=== PATIENT | male | born 1995 | race African-American/Black ===

== ENCOUNTER 2016-09-16 06:51 | Inpatient (IN) | payer SELFPAY ==
[2016-09-16] VITALS (10 sets, daily range): BP systolic 113–119; BP diastolic 58–64; PULSE 62–88; RESP 14–18; TEMP 97.5–98; O2SAT 96–98
[~2016-09-16] VITALS: Ht 172.7 cm; Wt 66.6 kg
[~2016-09-16 06:51] MED LIST: CLIN150 PO; CONTOUR NEXT EZ BLEZ XX; GLUCOMETER XX; GLUCOMTESTSTRIPS XX; LEVEMIR SC; LEVO88TA2 PO; NRSS SQ; SULF-154 PO; Z.0.INSULINSYR XX; Z.0.LANCETS XX
[2016-09-16] MEDS ORDERED: SODIUM CHLOR 0.9% 1000 ML INJ 1,000 ML IV ONE ×2 (07:20→07:50)
--- NOTE | 2016-09-16 07:26 | PD ---
HPI Chief Complaint: GI Complaint Time Seen by Provider: 07:08 Travel History International Travel<30 days: No Contact w/Intl Traveler<30days: No Traveled to known affect area: No History of Present Illness HPI This is a 21-year-old male who has a history of type 1 diabetes who presents to the emergency department with epigastric discomfort, mild associated with nausea , constant since last evening. He says his blood sugar was 380 this morning. He was concerned he may progress into DKA. He denies any dysuria, urinary urgency or frequency and denies any diarrhea. He denies any fevers or chills. PFSH Past Medical History Arthritis: No Asthma: No Autoimmune Disease: No Anxiety: No Depression: No Heart Rhythm Problems: No Cancer: No Cardiovascular Problems: No High Cholesterol: No Chemotherapy: No Chest Pain: No Congestive Heart Failure: No COPD: No Cerebrovascular Accident: No Diabetes: Yes Diminished Hearing: No Endocrine: Yes Gastrointestinal Disorders: No GERD: No Genitourinary: No Hiatal Hernia: No Immune Disorder: No Implanted Vascular Access Dvce: No Kidney Stones: No Musculoskeletal: No Neurologic: No Psychiatric: No Reproductive: No Respiratory: No Migraines: No Radiation Therapy: No Renal Failure: No Seizures: No Sickle Cell Disease: No Sleep Apnea: No Thyroid Disease: Yes (hypothyroid) Ulcer: No Past Surgical History Abdominal Surgery: No AICD: No Arteriovenous Shunt: No Cardiac Surgery: No Ear Surgery: No Endocrine Surgery: No Eye Surgery: No Genitourinary Surgery: No Gynecologic Surgery: No Insulin Pump: No Joint Replacement: No Oral Surgery: No Pacemaker: No Thoracic Surgery: No Social History Alcohol Use: No Tobacco Use: Yes (3 CIGARETTES) Substance Use: No Allergies-Medications (Allergen,Severity, Reaction): Coded Allergies: No Known Allergies (Unverified , 09/16/16) Reported Meds & Prescriptions Reported Meds & Active Scripts Active Reported Levothyroxine (Levothyroxine Sodium) 88 Mcg Tab 88 Mcg PO DAILY Novolin R Inj (Insulin Human Regular) 1,000 Unit/10 Ml Vial 0 SQ DIRECTED Sliding Scale As Directed. Review of Systems Except as stated in HPI: all other systems reviewed are Neg Physical Exam Narrative GENERAL:Well appearing, no acute distress SKIN: Focused skin assessment warm and dry. HEAD: Atraumatic. Normocephalic. EYES: Pupils equal and round. No injection or drainage. ENT: Moist mucous membranes NECK: Trachea midline. CARDIOVASCULAR: Regular rate and rhythm. No murmur appreciated. RESPIRATORY: Clear to auscultation. Breath sounds equal bilaterally. GASTROINTESTINAL: Abdomen soft, mildly tender to palpation in the epigastrium with no rebound/guarding MUSCULOSKELETAL: No obvious deformities. NEUROLOGICAL: Awake and alert. No obvious cranial nerve deficits. Moving all extremities. PSYCHIATRIC: Appropriate mood and affect; insight and judgment normal. Data Data Last Documented VS Vital Signs Date Time Temp Pulse Resp B/P Pulse Ox O2 Delivery O2 Flow Rate FiO2 09/16/16 07:41 14 09/16/16 07:41 63 97 Room Air 09/16/16 06:53 97.5 115/64 Orders Complete Blood Count With Diff (09/16/16 07:20) Comprehensive Metabolic Panel (09/16/16 07:20) Beta Hydroxybutyrate (Acetone) (09/16/16 07:20) Urinalysis - C+S If Indicated (09/16/16 07:20) Blood Gas Venous (Vbg) (09/16/16 07:20) Ecg Monitoring (09/16/16 07:20) Iv Access Insert/Monitor (09/16/16 07:20) Oximetry (09/16/16 07:20) NPO (09/16/16 07:20) Sodium Chlor 0.9% 1000 Ml Inj (Ns 1000 M (09/16/16 07:20) Sodium Chlor 0.9% 1000 Ml Inj (Ns 1000 M (09/16/16 07:50) Sodium Chloride 0.9% Flush (Ns Flush) (09/16/16 07:30) Lipase (09/16/16 07:20) Insulin Human Regular Inj (Novolin R Inj (09/16/16 09:00) Admit Order (Ed Use Only) (09/16/16 09:07) Labs Laboratory Tests Test 09/16/16 09/16/16 07:20 07:53 White Blood Count 5.6 TH/MM3 Red Blood Count 5.20 MIL/MM3 Hemoglobin 16.6 GM/DL Hematocrit 49.2 % Mean Corpuscular Volume 94.7 FL Mean Corpuscular Hemoglobin 32.0 PG Mean Corpuscular Hemoglobin 33.8 % Concent Red Cell Distribution Width 14.7 % Platelet Count 254 TH/MM3 Mean Platelet Volume 8.1 FL Neutrophils (%) (Auto) 67.5 % Lymphocytes (%) (Auto) 24.1 % Monocytes (%) (Auto) 6.7 % Eosinophils (%) (Auto) 0.8 % Basophils (%) (Auto) 0.9 % Neutrophils # (Auto) 3.8 TH/MM3 Lymphocytes # (Auto) 1.4 TH/MM3 Monocytes # (Auto) 0.4 TH/MM3 Eosinophils # (Auto) 0.0 TH/MM3 Basophils # (Auto) 0.1 TH/MM3 CBC Comment DIFF FINAL Differential Comment Urine Color COLORLESS Urine Turbidity CLEAR Urine pH 5.0 Urine Specific [place] 1.030 Urine Protein NEG mg/dL Urine Glucose (UA) 1000 mg/dL Urine Ketones 80 mg/dL Urine Occult Blood NEG Urine Nitrite NEG Urine Bilirubin NEG Urine Urobilinogen LESS THAN 2.0 MG/DL Urine Leukocyte Esterase NEG Urine RBC LESS THAN 1 /hpf Urine Mucus FEW /lpf Microscopic Urinalysis Comment CULT NOT INDICATED Sodium Level 133 MEQ/L Potassium Level 4.6 MEQ/L Chloride Level 94 MEQ/L Carbon Dioxide Level 23.5 MEQ/L Anion Gap 16 MEQ/L Blood Urea Nitrogen 17 MG/DL Creatinine 0.99 MG/DL Estimat Glomerular Filtration 116 ML/MIN Rate Random Glucose 558 MG/DL Calcium Level 8.7 MG/DL Total Bilirubin 0.7 MG/DL Aspartate Amino Transf 45 U/L (AST/SGOT) Alanine Aminotransferase 45 U/L (ALT/SGPT) Alkaline Phosphatase 118 U/L Total Protein 7.0 GM/DL Albumin 3.4 GM/DL Lipase 115 U/L B-Hydroxybutyrate 5.24 MMOL/L Blood Gas Puncture Site LINE Blood Gas Patient Temperature 98.6 Venous Blood pH 7.32 Venous Blood Partial Pressure 40 mmHg CO2 Venous Blood Partial Pressure 54 mmHg O2 Venous Blood HCO3 20 mmol/L Venous Blood Oxygen Saturation 82 % Venous Blood Oxygen Content 17.2 Vol % Venous Blood Base Excess -5.2 mmol/L Oxygen Delivery Device ROOM AIR Blood Gas Liter Flow L/M Blood Gas Inspired Oxygen 21 % [facility] Medical Decision Making Medical Screen Exam Complete: Yes Emergency Medical Condition: Yes Interpretation(s) Afebrile, no tachycardia, normotensive No leukocytosis Mild hyponatremia Hyperglycemia Lipase is normal Beta hydroxybutyrate is 5.24 Urinalysis: No infection, ketones present VBG: Mild metabolic acidosis Differential Diagnosis Diabetic ketoacidosis, hyperglycemia, dehydration Narrative Course This is a 21-year-old male who presents to the emergency department with hyperglycemia, epigastric abdominal discomfort and vomiting. He was placed on a monitor and an IV was established. His labs are consistent with very early diabetic ketoacidosis. Patient was given an insulin bolus and 2 L of IV fluid here in the emergency department. Pt. will be admitted to the ICU Diagnosis Primary Impression: DKA (diabetic ketoacidoses) Qualified Code: E10.10 - Diabetic ketoacidosis without coma associated with type 1 diabetes mellitus Admitting Information Admitting Physician Requests: Admit Paty Vail MD Sep 16, 2016 07:26
[2016-09-16] MEDS ORDERED: SODIUM CHLORIDE 0.9% FLUSH 10 ML FLUSH IVF PRN (07:30)
[2016-09-16 07:38] LABS: AUTOMATED NEUTROPHIL # 3.8 TH/MM3 (1.8-7.7); BASOPHIL # 0.1 TH/MM3 (0-0.2); BASOPHIL % 0.9 % (0.0-2.0); EOSINOPHIL % 0.8 % (0.0-4.0); HEMATOCRIT 49.2 % (39.0-51.0); HEMO FLAGS DIFF FINAL; LYMPH % 24.1 % (9.0-44.0); LYMPHOCYTE # 1.4 TH/MM3 (1.0-4.8); MEAN CELL VOLUME 94.7 FL (80.0-100.0); MEAN CORPUSCULAR HGB CONC 33.8 % (32.0-36.0); MONO % 6.7 % (0.0-8.0); NEUT % 67.5 % (16.0-70.0); PLATELET COUNT 254 TH/MM3 (150-450); RED CELL DISTRIBUTION WIDTH 14.7 % (11.6-17.2); WHITE BLOOD COUNT 5.6 TH/MM3 (4.0-11.0)
[2016-09-16 07:40] LABS: BLOOD, URINE NEG (NEG); COMMENT (UR) CULT NOT INDICATED; CULTURE IF INDICATED CULT NOT INDICATED; GLUCOSE,URINE 1000 mg/dL (NEG); KETONE, URINE 80 mg/dL (NEG); MUCUS URINE FEW /lpf (OCC); NITRITE,URINE NEG (NEG); URINE COLOR COLORLESS (YELLW/STRAW)
[2016-09-16] MEDS ORDERED: NOVORP2 SQ (07:47)
[2016-09-16] MEDS ORDERED: LEVO88TA2 PO (07:47)
[2016-09-16 07:56] LABS: BLOOD GAS VENOUS BASE EXCESS -5.2 mmol/L (-2-2); BLOOD GAS VENOUS HCO3 20 mmol/L (22-26); BLOOD GAS VENOUS O2 CONTENT 17.2 Vol % (9.0-17.0); BLOOD GAS VENOUS O2 HGB SAT 82 % (70-76); BLOOD GAS VENOUS PCO2 40 mmHg (44-48); BLOOD GAS VENOUS PO2 54 mmHg (35-40); BLOOD GAS VENOUS pH 7.32 (7.360-7.400); TEMP CORR TO 98.6
[2016-09-16 07:57] LABS: CRITICAL VALUE YES; DRAW SITE LINE; FIO2 21 %; OXYGEN DEVICE ROOM AIR; STAT YES
[2016-09-16 08:22] LABS: ALKALINE PHOSPHATASE 118 U/L (45-117); ALT (GPT) 45 U/L (12-78); ANION GAP 16 MEQ/L (5-15); AST (GOT) 45 U/L (15-37); BETA-HYDROXYBUTYRATE 5.24 MMOL/L (0.00-0.39); BICARBONATE 23.5 MEQ/L (21.0-32.0); BLOOD UREA NITROGEN 17 MG/DL (7-18); CHLORIDE 94 MEQ/L (98-107); GLOMERULAR FILTRATION RATE 116 ML/MIN (>89); SODIUM (NA) 133 MEQ/L (136-145); TOTAL BILIRUBIN ADULT 0.7 MG/DL (0.2-1.0)
[2016-09-16 08:23] LABS: POTASSIUM 4.6 MEQ/L (3.5-5.1)
[2016-09-16] MEDS ORDERED: INSULIN HUMAN REGULAR 1,000 UNITS/10 ML VIAL IV PUSH ONE (09:00)
--- NOTE | 2016-09-16 09:24 | HHI.HP ---
HPI Service Family Medicine Primary Care Physician No Primary Care Physician Admission Diagnosis dka Diagnoses: International Travel<30 Days: No Contact w/Intl Traveler<30days: No Known Affected Area: No History of Present Illness Patient is a 21 year old male with DM1 and hypothyroidism who presents stomach pain and nausea starting around midnight. His blood sugar was 380 at home. Stomach pain is described as "tightness" in the center of the abdomen, above the umbilicus. Nonradiating, off-and-on, lasting until about 8am this morning. Now he has minimal pain. Nausea resolved a while ago. No other symptoms reported. No new lifestyle habits, no increased time in sun. Urinating normally. Bowel movements normal, no diarrhea. No recent illnesses or sick contacts. No differences in diet. Eats normal diet with meats, veggies, fruits, fats, counts carbs. No PCP at this time. Buys insulin OTC. Came down from [place] about a year old. SSI: 1 unit per 5 carbs. Varies. Does not offer how many he took yesterday, "couldn't tell you". Hypothyroidism: takes Synthroid 88mcg daily. PCP in [place]: "I forget" He denies any dysuria, urinary urgency or frequency and denies any diarrhea. He denies any fevers or chills, weight changes. No cough or SOB. (Henny Olsen MD R1) Review of Systems Constitutional: DENIES: Diaphoretic episodes, Fever, Weight gain, Weight loss, Chills, Night Sweats Eyes: DENIES: Blurred vision, Diplopia, Eye pain Ears, nose, mouth, throat: DENIES: Tinnitus, Hearing loss, Running Nose Respiratory: DENIES: Cough, Snoring, Wheezing, Shortness of breath Cardiovascular: DENIES: Chest pain, Palpitations Gastrointestinal: COMPLAINS OF: Abdominal pain, Nausea, DENIES: Black stools, Bloody stools, Constipation, Diarrhea Genitourinary: DENIES: Urinary frequency, Urgency, Dysuria Musculoskeletal: DENIES: Joint pain, Muscle aches, Stiffness Integumentary: DENIES: Rash Hematologic/lymphatic: DENIES: Bruising, Lymphadenopathy Neurologic: DENIES: Abnormal gait, Headache, Paresthesias, Poor Balance Psychiatric: DENIES: Anxiety, Delusions (Henny Olsen MD R1) Past Family Social History Past Surgical History None Reported Medications Reported Meds & Active Scripts Active Reported Levothyroxine (Levothyroxine Sodium) 88 Mcg Tab 88 Mcg PO DAILY Novolin R Inj (Insulin Human Regular) 1,000 Unit/10 Ml Vial 0 SQ DIRECTED Sliding Scale As Directed. (Henny Olsen MD R1) Allergies: Coded Allergies: No Known Allergies (Unverified , 09/16/16) Family History Family history denied Social History Homeless Working Smoking - occasional, unknown Alcohol - never Illicit - denies (Henny Olsen MD R1) Physical Exam Vital Signs Vital Signs Date Time Temp Pulse Resp B/P Pulse Ox O2 Delivery O2 Flow Rate FiO2 09/16/16 07:41 14 09/16/16 07:41 63 14 97 Room Air 09/16/16 06:53 97.5 88 18 115/64 Physical Exam GENERAL: Well-nourished, well appearing male lying in bed in no apparent distress. SKIN: Warm and dry. No rashes. No erythema or lesions to suggest infection. HEAD: Atraumatic. Normocephalic. EYES: Pupils enlarged to approximately 7mm, reactive to light and accomodation. No scleral icterus. No injection or drainage. ENT: No nasal bleeding or discharge. Mucous membranes pink and moist. No tonsillar erythema or exudate. NECK: Trachea midline. No JVD. CARDIOVASCULAR: Regular rate and rhythm. No murmurs, gallops or rubs. RESPIRATORY: No accessory muscle use. Clear to auscultation. Breath sounds equal bilaterally. GASTROINTESTINAL: Abdomen soft, non-tender, nondistended. Hepatic and splenic margins not palpable. Subcutaneous hardening of the lower abdomen at location that he injects insulin without evidence of infection. MUSCULOSKELETAL: Extremities without clubbing, cyanosis, or edema. No obvious deformities. NEUROLOGICAL: Awake and alert. tours hostess II-XII are intact. Motor grossly within normal limits. Five out of 5 muscle strength in the arms and legs. Normal speech. PSYCHIATRIC: Patient was contact and seems to have a depressed mood during exam. He denies any history or current anxiety or depression Laboratory Laboratory Tests Test 09/16/16 09/16/16 07:20 07:53 White Blood Count 5.6 Red Blood Count 5.20 Hemoglobin 16.6 Hematocrit 49.2 Mean Corpuscular Volume 94.7 Mean Corpuscular Hemoglobin 32.0 Mean Corpuscular Hemoglobin 33.8 Concent Red Cell Distribution Width 14.7 Platelet Count 254 Mean Platelet Volume 8.1 Neutrophils (%) (Auto) 67.5 Lymphocytes (%) (Auto) 24.1 Monocytes (%) (Auto) 6.7 Eosinophils (%) (Auto) 0.8 Basophils (%) (Auto) 0.9 Neutrophils # (Auto) 3.8 Lymphocytes # (Auto) 1.4 Monocytes # (Auto) 0.4 Eosinophils # (Auto) 0.0 Basophils # (Auto) 0.1 CBC Comment DIFF FINAL Differential Comment Urine Color COLORLESS Urine Turbidity CLEAR Urine pH 5.0 Urine Specific [place] 1.030 Urine Protein NEG Urine Glucose (UA) 1000 Urine Ketones 80 Urine Occult Blood NEG Urine Nitrite NEG Urine Bilirubin NEG Urine Urobilinogen LESS THAN 2.0 Urine Leukocyte Esterase NEG Urine RBC LESS THAN 1 Urine Mucus FEW Microscopic Urinalysis Comment CULT NOT INDICATED Sodium Level 133 Potassium Level 4.6 Chloride Level 94 Carbon Dioxide Level 23.5 Anion Gap 16 Blood Urea Nitrogen 17 Creatinine 0.99 Estimat Glomerular Filtration 116 Rate Random Glucose 558 Calcium Level 8.7 Total Bilirubin 0.7 Aspartate Amino Transf 45 (AST/SGOT) Alanine Aminotransferase 45 (ALT/SGPT) Alkaline Phosphatase 118 Total Protein 7.0 Albumin 3.4 Lipase 115 B-Hydroxybutyrate 5.24 Blood Gas Puncture Site LINE Blood Gas Patient Temperature 98.6 Venous Blood pH 7.32 Venous Blood Partial Pressure 40 CO2 Venous Blood Partial Pressure 54 O2 Venous Blood HCO3 20 Venous Blood Oxygen Saturation 82 Venous Blood Oxygen Content 17.2 Venous Blood Base Excess -5.2 Oxygen Delivery Device ROOM AIR Blood Gas Liter Flow Blood Gas Inspired Oxygen 21 (Henny Olsen MD R1) Result Diagram: 09/16/16 0720 09/16/16 0720 Assessment and Plan Assessment and Plan 21-year-old male with a history of hypothyroidism and type 1 diabetes who presents with hyperglycemia, nausea and abdominal pain. Nausea and pain have resolved, however, he is meeting criteria for DKA. Code Status Full Code (Henny Olsen MD R1) Attending Attestation Patient seen and examined. Case reviewed and discussed with the resident team. Agree with plan of care as discussed with me and documented in the resident note. pt seen on admission. he is very independent and has left AMA when last admitted (Leona Blood MD) Problem List: (1) DKA (diabetic ketoacidoses) Status: Acute Plan: Unknown etiology, patient does take insulin [id number] and uses an unknown sliding scale, suggesting poor control. AG 16 on admission, random serum glucose 558. Glucose 555 after 2 L NS bolus and insulin bolus. No evidence of infection per history or labs Will obtain UDS as pupils were dilated on exam Will commence with DKA protocol, patient is status post 2 L bolus and 7 units insulin bolus per protocol BMP every 6 hours Follow-up repeat [facility] Will check A1c We'll transition to subQ insulin once gap is closed (2) DM (diabetes mellitus) Status: Acute Plan: Currently meeting criteria for DKA, will add diabetic education and nutrition consult Case management to assist with PCP (3) Hypothyroidism Status: Chronic Plan: Per report, takes Synthroid 88 g daily, to continue. Will check TSH (4) Fluids/Electrolytes/Nutrition/Prophylaxis Status: Acute Plan: Fluids: Per protocol at this time, nothing by mouth Electrolytes: monitor and replete K as needed per protocol Nutrition: Nothing by mouth DVT Prophylaxis: Lovenox 40mg subQ q24hr GI Prophylaxis: Not indicated (Henny Olsen MD R1) Physician Certification 2 Midnight Certification Type: Admission for Inpatient Services Order for Inpatient Services The services are ordered in accordance with Medicare regulations or non- Medicare payer requirements, as applicable. In the case of services not specified as inpatient-only, they are appropriately provided as inpatient services in accordance with the 2-midnight benchmark. Estimated LOS (days): 3 days is the estimated time the patient will need to remain in the hospital, assuming treatment plan goals are met and no additional complications. Post-Hospital Plan: Not yet determined (Henny Olsen MD R1) Problem Qualifiers (1) DKA (diabetic ketoacidoses): Qualified Code: E10.10 - Diabetic ketoacidosis without coma associated with type 1 diabetes mellitus (2) DM (diabetes mellitus): Henny Olsen MD R1 Sep 16, 2016 09:24 Leona Blood MD Sep 17, 2016 12:13
[2016-09-16] MEDS ORDERED: SODIUM CHLOR 0.9% 1000 ML INJ 1,000 ML IV SCH (09:32)
[2016-09-16] MEDS ORDERED: POTASSIUM CHLOR 40 MEQ PREMIX 100 ML IV PRN ×2 (09:45)
[2016-09-16] MEDS ORDERED: INSULIN REGULAR (IV INFUSION) 100 UNITS in SODIUM CHLORIDE 0.9% INJ 99 ML IV SCH (09:45)
[2016-09-16] MEDS ORDERED: POTASSIUM CHLOR 20 MEQ PREMIX 100 ML IV PRN ×6 (09:45)
[2016-09-16] MEDS ORDERED: SODIUM PHOSPHATE INJ 15 MMOL in SODIUM CHLORIDE 0.9% INJ 100 ML IV PRN (09:45)
[2016-09-16] MEDS ORDERED: CHLORHEXIDINE GLUCONATE 2 % 1 PACK (2 CLOTHS) TOP PRN (09:45)
[2016-09-16] MEDS ORDERED: MISCELLANEOUS NURSING INFORMATION XX SCH (09:45)
[2016-09-16] MEDS ORDERED: SODIUM BICARBONATE 8.4% SOLN 50 MEQ/50 ML VIAL IV PRN ×2 (09:45)
[2016-09-16] MEDS ORDERED: LEVOTHYROXINE SODIUM 88 MCG TAB PO SCH (10:20)
[2016-09-16] MEDS: DEXT 5%-NACL 0.9% 1000 ML INJ 1,000 ML IV SCH ×2 (11:03→16:51)
[2016-09-16 11:16] LABS: AMPHETAMINE, URINE NEG (NEG); BARBITURATES, URINE NEG (NEG); COCAINE, URINE NEG (NEG)
[2016-09-16 14:40] LABS: BICARBONATE 14.1 MEQ/L (21.0-32.0); MAGNESIUM 1.7 MG/DL (1.5-2.5); POTASSIUM 5.1 MEQ/L (3.5-5.1)
[2016-09-16 14:54] LABS: CALCIUM-PROTEIN CORRECTED 7.3 MG/DL (8.5-10.1)
[2016-09-16] MEDS ORDERED: CALCIUM CARBONATE 1.25 GM (CA 500 MG) TAB PO ONE (16:00)
[2016-09-16 16:26] LABS: HEMOGLOBIN A1a 1.4 %; HEMOGLOBIN A1b 4.1 %; HEMOGLOBIN Ao 70.7 %; HEMOGLOBIN LA1C 5.1 %; HEMOGLOBIN P3 5.3 %
[2016-09-16] MEDS ORDERED: ENOXAPARIN SODIUM 40 MG/0.4 ML SYRINGE SQ SCH (18:00)
[2016-09-16 20:03] LABS: BETA-HYDROXYBUTYRATE 0.5 MMOL/L (0.00-0.39); POTASSIUM 3.7 MEQ/L (3.5-5.1)
[2016-09-16] MEDS ORDERED: CALCIUM CARBONATE 1.25 GM (CA 500 MG) TAB PO SCH (21:00)
--- NOTE | 2016-09-16 21:13 | PD.AMA ---
Against Medical Advice Note Discharge Disposition: Against Medical Advice Pt Condition on Discharge: Stable Recommended Treatment Course Monitor BMP, continue IVF and insulin drip, transition to subQ insulin and discontinue drip, diabetic education, scripts for insulin prior to discharge AMA Statement Patient Alan Arredondo has decided to leave the hospital against medical advice. This patient has the capacity to refuse care and understands the risks of leaving, including permanent disability and/or , and has had an opportunity to ask questions about his condition. The patient has been informed that he may return for care at any time, and follow up has been arranged/ advised. Henny Olsen MD R1 Sep 16, 2016 21:13
[2016-09-17] MEDS ORDERED: CHLORHEXIDINE GLUCONATE 2 % 1 PACK (2 CLOTHS) TOP SCH (04:00)
== END 2016-09-16 20:30 | disposition left against medical advice (07) | DRG 639 ==
LOC: NEPC 06:51 → NEDA 09:09 → HIMW 12:50
PROVIDERS: ADMIT Family Medicine; ATTEND Family Medicine
DX: E10.10 Type 1 diabetes mellitus with ketoacidosis without coma (principal); E03.9 Hypothyroidism, unspecified; Z79.4 Long term (current) use of insulin; F17.210 Nicotine dependence, cigarettes, uncomplicated; Z59.0 Homelessness
CPT/HCPCS: 80048; 80053; 80307; 81001; 82010; 82805; 82948; 83036; 83690; 83735; 84100; 84155; 84443; 85025; 87641; 96361; 96374; J1815; J1817; J7030; J7042

== ENCOUNTER 2018-02-05 22:06 | Observation (INO) ==
[2018-02-05] MEDS: Sod Chloride 0.9% Inj 1,000 ML IV.SIG SCH (23:15)
[2018-02-05 23:30] LABS: VBG Base Excess -1.3 mmol/L (-2-2); VBG Blood Gas Oxygen Content 16.9 Vol % (9.0-17.0); VBG PCO2 35 mmHG (44-48); VBG PH 7.42 (7.360-7.400); VBG PO2 41 mmHG (35-40)
[2018-02-06 00:04] LABS: Baso # (Auto) 0.1 th/mm3 (0.0-0.2); Baso % (Auto) 0.4 % (0.0-2.0); Eos % (Auto) 0.1 % (0.0-4.0); Hematocrit 53.7 % (39.0-51.0); Hemoglobin 19.3 gm/dL (13.0-17.0); Lymph # (Auto) 2.3 th/mm3 (1.0-4.8); Lymph % (Auto) 13.2 % (9.0-44.0); Mean Corpuscular HGB Conc 35.9 % (32.0-36.0); Mean Corpuscular Hemoglobin 32.3 pg (27.0-34.0); Mean Platelet Volume 7.6 fL (7.0-11.0); Mono % (Auto) 5.5 % (0.0-8.0); Neut % (Auto) 80.8 % (16.0-70.0); Platelet Count 357 th/mm3 (150-450); Red Blood Count 5.96 mil/mm3 (4.50-5.90); Red Cell Distribution Width 13.5 % (11.6-17.2); White Blood Count 17.3 th/mm3 (4.0-11.0)
[2018-02-06 00:23] LABS: Albumin 4.1 g/dL (3.4-5.0); Beta Hydroxybutyric Acid 0.78 mmol/L (0.00-0.39); Calcium 10.4 mg/dL (8.5-10.1); Carbon Dioxide 27.5 meq/L (21.0-32.0); Potassium 4.1 meq/L (3.5-5.1); Total Protein 8.9 g/dL (6.4-8.2)
[2018-02-06] MEDS ORDERED: Ketorolac Inj 30 MG/ML (IVP) Vial IV.PUSH ONE (00:37)
[2018-02-06] MEDS: Sod Chloride 0.9% Inj 1,000 ML IV.SIG SCH (00:49)
[2018-02-06] MEDS ORDERED: Sodium Chlor 0.9% Inj 500 ML IV.SIG SCH (01:00)
--- NOTE | 2018-02-06 01:00 | XR ---
EXAM DATE: 02/06/2018 12:53 AM EDT AGE/SEX: 22 years / Male INDICATIONS: Hyperglycemia. CLINICAL DATA: This is the patient's initial encounter. Patient reports that signs and symptoms have been present for 1 day and indicates a pain score of 0/10. MEDICAL/SURGICAL HISTORY: Hypothyroidism. Diabetes. None. COMPARISON: [facility] – [place], CHEST SINGLE AP, 03/10/2017. . FINDINGS: A single AP view of the chest demonstrates the lungs to be symmetrically aerated without evidence of mass, infiltrate or effusion. The cardiomediastinal contours are unremarkable. Osseous structures a re intact. CONCLUSION: 1. No acute cardiopulmonary disease. Electronically signed by: Jaylan Mistry MD 02/06/2018 12:58 AM EDT
--- NOTE | 2018-02-06 01:44 | CT ---
EXAM DATE: 02/06/2018 1:27 AM EDT AGE/SEX: 22 years / Male INDICATIONS: Abdomen pain. CLINICAL DATA: This is the patient's initial encounter. Patient reports that signs and symptoms have been present for 1 day and indicates a pain score of 2/10. MEDICAL/SURGICAL HISTORY: Diabetes mellitus type II. Hyperthyroidism. None. ORAL CONTRAST: Patient refused oral contrast. RADIATION DOSE: 9.07 CTDI (mGy) COMPARISON: [facility] – [place], US ABDOMEN - LIVER, 10/28/2015. . TECHNIQUE: Multiple contiguous axial images were obtained through the abdomen and pelvis following b olus infusion of 95 ml Omnipaque 350 (iohexol) nonionic water-soluble contrast as a single exam dos e. Patient refused oral contrast. Using automated exposure control and adjustment of the mA and/or k V according to patient size, radiation dose was kept as low as reasonably achievable to obtain optima l diagnostic quality images. DICOM format image data is available electronically for review and comp arison. FINDINGS: LOWER LUNGS: Minimal groundglass opacities in the posterior lung bases bilaterally. LIVER: Mild hepatomegaly. No focal mass or intrahepatic ductal dilatation. No calcified gallstones. SPLEEN: Homogeneous density without enlargement. PANCREAS: Unremarkable without mass or calcification. KIDNEYS: Kidneys demonstrate symmetrical enhancement and are symmetrical in size without evidence fo r radiopaque renal calculi or hydronephrosis. ADRENAL GLANDS: Unremarkable. AORTA: Britney-aneurysmal. BOWEL/MESENTERY: Evaluation of the midabdomen is markedly limited due to motion artifact. Appendix i s not directly visualized. There is a focal intussusception in a loop of small bowel in the left mida bdomen, likely proximal ileoileal. The visualized portions of bowel appear unremarkable. No free flui d or drainable fluid collections. ABDOMINAL WALL: Intact. RETROPERITONEUM: No evidence of adenopathy in the retrocrural, para-aortic, or deep pelvic regions. BLADDER: Contours are smooth. REPRODUCTIVE: No abnormal masses or calcifications seen. BONY STRUCTURES: Unremarkable. CONCLUSION: 1. Probable transient ileoileal intussusception in the left midabdomen. Transient intussusceptions a re frequently detected on CT exam and generally benign. It is however reported in adults with celiac and Crohn's disease although there is no evidence for significant inflammatory bowel disease on this exam. 2. Portions of the midabdomen are obscured by motion artifact. 3. Appendix is not directly visualized although there is no significant inflammatory change in the r ight lower quadrant. Electronically signed by: Jaylan Mistry MD 02/06/2018 1:42 AM EDT
--- NOTE | 2018-02-06 02:57 | ED ---
HPI General Chief complaint: Abdominal Pain Stated complaint: Medical check Up Time Seen by Provider: 02/05/18 22:59 Source: patient Mode of arrival: ambulatory Limitations: no limitations History of Present Illness HPI narrative: Patient is a 22 year old male, with history of type I diabetes, who comes in complaining of feeling unwell with nausea, vomiting, and abdominal pain. He says he ran out of his insulin and his sugar got to 400s. He was able to refill his insulin today and has been treating his sugars. He says he still does not feel right, feels generally weak, and he has pain to the left side of his abdomen. He denies fever or chills. He denies cough or cold symptoms. Severity is moderate. Related Data Home Medications Medication Instructions Recorded Confirmed insulin regular human 1 sliding scale dose SUB-Q UD 02/05/18 02/05/18 Allergies Allergy/AdvReac Type Severity Reaction Status Date / Time No Known Allergies Allergy Verified 02/05/18 22:43 Review of Systems ROS: all other systems reviewed are negative Constitutional Denies chills and Denies fever(s) ENT Denies dizziness and Denies sore throat Cardiovascular Denies chest pain Respiratory Denies cough and Denies dyspnea Gastrointestinal Reports abdominal pain, Reports nausea and Reports vomiting Genitourinary Denies dysuria Musculoskeletal Denies myalgias and Denies arthralgias Integumentary/Breasts Denies lesions, Denies rash and Denies wounds Neurologic Denies focal weakness and Denies numbness [facility] Medical History Medical History Diabetes (Acute) Hypothyroid (Acute) Social History Social History Substance History: No History of Abuse Smoking Status: Never smoker Tobacco Type: Cigarettes How Often Do You Have a Drink Containing Alcohol: Never Recent Travel in [facility] within the Last 8 Weeks: No Recent Out of Country Travel within the Last 8 Weeks: No Immunization History Tetanus Immunization: <5 Years Hx Influenza Vaccine This Season: Yes Exam Narrative Exam Narrative: GENERAL: Awake and alert, in no acute distress. Ketones on breath. SKIN: Focused skin assessment warm/dry. HEAD: Atraumatic. Normocephalic. EYES: Pupils equal and round. No scleral icterus. ENT: Dry mucous membranes. NECK: Trachea midline. No JVD. CARDIOVASCULAR: Tachycardia. No murmur appreciated. RESPIRATORY: No accessory muscle use. Clear to auscultation. Breath sounds equal bilaterally. GASTROINTESTINAL: Abdomen soft, nondistended. Tender to palpation of the left side of the abdomen. No rebound or guarding. MUSCULOSKELETAL: No obvious deformities. No clubbing. No cyanosis. No edema. NEUROLOGICAL: Awake and alert. No obvious cranial nerve deficits. Motor grossly within normal limits. Normal speech. PSYCHIATRIC: Appropriate mood and affect; insight and judgment normal. Course Initial Documented Vital Signs Temperature 98.6 F 02/05/18 22:43 Pulse Rate 159 H 02/05/18 22:43 Respiratory Rate 18 02/05/18 22:43 Blood Pressure 120/77 02/05/18 22:43 Pulse Oximetry 95 02/05/18 22:43 Last Documented Vital Signs Temperature 98.6 F 02/05/18 22:43 Pulse Rate 112 H 02/06/18 00:12 Respiratory Rate 15 02/06/18 02:54 Blood Pressure 118/75 02/06/18 00:12 Pulse Oximetry 96 02/06/18 00:12 Medical Decision Making [facility] Narrative Medical decision making narrative: Patient is a 22-year-old male with history of type 1 diabetes who comes in complaining of nausea and vomiting and abdominal pain and a feeling of being unwell. Patient is tachycardic on arrival , abdomen is tender to the left side. IV established, labs sent. Labs show elevated white blood cell count. PH is 7.4. Anion gap is within normal limits. BUN and creatinine are elevated, suggesting dehydration. Patient given IV fluids with improvement of his tachycardia. Given Zofran and Tylenol. CT of the abdomen and pelvis performed shows possible transient intussusception. Patient continues to still have some pain to his abdomen. Believe he would benefit from an observation stay, possible surgical consult in the morning. Medical Screen Exam Complete: Yes Emergency Medical Condition: Yes Differential Diagnosis Differential Diagnosis: DKA versus hyperglycemia versus dehydration Medical Records Medical records reviewed: Yes I reviewed the patient's medical records. Lab Data Lab results reviewed: Yes I reviewed the patient's lab results. Result diagrams: 02/05/18 23:20 02/05/18 23:20 Lab Results 09/15/18 09/15/18 09/15/18 Range/Units 23:10 23:20 23:20 WBC 17.3 H (4.0-11.0) th/mm3 RBC 5.96 H (4.50-5.90) mil/mm3 Hgb 19.3 H (13.0-17.0) gm/dL Hct 53.7 H (39.0-51.0) % MCV 90.0 (80.0-100.0) fL MCH 32.3 (27.0-34.0) pg MCHC 35.9 (32.0-36.0) % RDW 13.5 (11.6-17.2) % Plt Count 357 (150-450) th/mm3 MPV 7.6 (7.0-11.0) fL Neut % (Auto) 80.8 H (16.0-70.0) % Lymph % (Auto) 13.2 (9.0-44.0) % [place] % (Auto) 5.5 (0.0-8.0) % Eos % (Auto) 0.1 (0.0-4.0) % Baso % (Auto) 0.4 (0.0-2.0) % Neut # (Auto) 14.0 H (1.8-7.7) th/mm3 Lymph # (Auto) 2.3 (1.0-4.8) th/mm3 [place] # (Auto) 1.0 H (0.0-0.9) th/mm3 Eos # (Auto) 0.0 (0.0-0.4) th/mm3 Baso # (Auto) 0.1 (0.0-0.2) th/mm3 WBC Differential . Differential Comment Auto diff final Puncture Site Rn bennie from iv site Patient Temperature 98.6 VBG pH 7.42 H (7.360-7.400) VBG pCO2 35 L (44-48) mmHG VBG pO2 41 H (35-40) mmHG VBG HCO3 23 (22-26) mmol/L VBG O2 Saturation 75 (70-76) % VBG O2 Content 16.9 (9.0-17.0) Vol % VBG Base Excess -1.3 (-2-2) mmol/L VBG Carboxyhemoglobin 1.4 (0-4) % VBG Methemoglobin 0.6 (0-2) % Hemoglobin 16.1 H (12.0-16.0) G/DL O2 Delivery Device Room air Inspired O2 21 % Critical Value No Sodium 137 (136-145) meq/L Potassium 4.1 (3.5-5.1) meq/L Chloride 98 (98-107) meq/L Carbon Dioxide 27.5 (21.0-32.0) meq/L Anion Gap 12 (5-15) meq/L BUN 26 H (7-18) mg/dL Creatinine 1.42 H (0.60-1.30) mg/dL Estimated GFR 76 L (>89) mL/min Random Glucose 105 (74-106) mg/dL Calcium 10.4 H (8.5-10.1) mg/dL Total Bilirubin 0.6 (0.2-1.0) mg/dL Direct Bilirubin 0.1 (0.0-0.2) mg/dL Indirect Bilirubin 0.5 (0.0-0.8) mg/dL AST 35 (15-37) U/L ALT 36 (12-78) U/L Alkaline Phosphatase 142 H (45-117) U/L Total Protein 8.9 H (6.4-8.2) g/dL Albumin 4.1 (3.4-5.0) g/dL Beta-Hydroxybutyric Acd 0.78 H (0.00-0.39) mmol/L Imaging Data Radiologist's impression: Abdomen/Pelvis CT 02/06/18 00:00 CONCLUSION: 1. Probable transient ileoileal intussusception in the left midabdomen. Transient intussusceptions are frequently detected on CT exam and generally benign. It is however reported in adults with celiac and Crohn's disease although there is no evidence for significant inflammatory bowel disease on this exam. 2. Portions of the midabdomen are obscured by motion artifact. 3. Appendix is not directly visualized although there is no significant inflammatory change in the right lower quadrant. Chest X-Ray 02/06/18 00:37 CONCLUSION: 1. No acute cardiopulmonary disease. Discharge Plan Discharge Disposition Patient Disposition: 30 Still Patient Discharge Condition Condition: Stable Discharge Details Diagnosis: Nausea & vomiting, Intussusception Physicians Team ED Provider: Cristin Meng Primary Care Provider: Primary Care Physici,Lizzy Rxs /Orders / Referrals /Forms Prescriptions: No Action insulin regular human 100 unit/mL Solution 1 sliding scale dose SUB-Q UD RF: 0 Discharge Interventions Interventions: Vital Signs Last Done: 02/06/18 00:12 Status ED Status: With Doctor
[2018-02-06] MEDS ORDERED: Dextrose 50% in Water 50 ML Vial IV.PUSH PRN (03:27)
[2018-02-06] MEDS ORDERED: Acetaminophen 325 MG Tablet PO PRN (03:28)
[2018-02-06] MEDS ORDERED: Morphine Inj 4 MG/ML Vial IV.PUSH PRN (03:28)
[2018-02-06] MEDS ORDERED: Bisacodyl 10 MG Supp RECTAL PRN (03:28)
[2018-02-06] MEDS: Sod Chloride 0.9% Inj 1,000 ML IV.CONT SCH ×3 (04:19→17:09)
--- NOTE | 2018-02-06 04:25 | P.HPIM ---
History of Present Illness Primary Care Physician: No Primary Care Physician History of Present Illness: This is a 22-year-old male with a PMH of DM who presents to ER with complaints of abdominal pain, nausea and vomiting starting earlier today. States he had run out of his Insulin a few days ago and BS were running high in the 400's, however he was able to refill his prescription and has been using sliding scale , notes BS now well controlled. Today, w/ acute onset abdominal pain, nausea and vomiting. No fever, chills or diarrhea. On arrival, BP 120/77, HR 159, O2 sat 95% on RA, Afebrile. WBC 17.3, hemoglobin 19.3. Creatinine 1.42, previously 0.89 on 03/12/2017. CXR with no acute findings. CT Abdomen/Pelvis probable transient ileoileal intussusception in the left mid abdomen, no significant inflammatory bowel disease. Currently pain free. - Diagnosis (1) DM (diabetes mellitus) (2) ZAIN (acute kidney injury) (3) Leukocytosis (4) Intussusception Review of Systems PAST FAMILY HISTORY: Reviewed. No h/o DM or CAD All other systems reviewed negative except as stated in HPI PMFSH - History History Provided By: Patient - Medical History Medical History: Medical History (Last Reviewed 02/06/18 @ 03:05 by Cristin Meng MD) Diabetes Hypothyroid - Tobacco History Smoking Status: Never smoker Tobacco Type: Cigarettes - Alcohol History How Often Do You Have a Drink Containing Alcohol: Never - Substance Use History Substance History: No History of Abuse - Travel History Recent Travel in the [place] Within the Last 8 Weeks: No Recent Travel Out of the Country Within the Last 8 Weeks: No - Immunization History Tetanus Immunization: <5 Years Hx Influenza Vaccine This Season: Yes Medications and Allergies Active Medications: Active Medications Acetaminophen (Tylenol) 650 mg PO Q4H PRN PRN Reason: Temp > 100.4 Al Hydroxide/Mg Hydroxide (Milk Of Magnesia Liq) 30 ml PO Q12H PRN PRN Reason: Mild Constipation Bisacodyl (Dulcolax Supp) 10 mg RECTAL DAILY PRN PRN Reason: SEVERE CONSITIPATION Dextrose (D50w Vial) 50 ml IV.PUSH UNSCH PRN PRN Reason: PER HYPOGLYCEMIA PROTOCOL Glucagon (Glucagon Inj) 1 mg OTHER PRN PRN PRN Reason: for Hypoglycemia Protocol Sodium Chloride (Ns Inj) 1,000 mls @ 0 mls/hr IV.SIG BOLUS MARCO ANTONIO Stop: 02/06/18 23:16 Last Infusion: 02/06/18 01:49 Dose: Infused Sodium Chloride (Ns Inj) 500 mls @ 0 mls/hr IV.SIG BOLUS MARCO ANTONIO Last Infusion: 02/06/18 01:50 Dose: Infused Sodium Chloride (Ns Inj) 1,000 mls @ 100 mls/hr IV.CONT .Q10H MARCO ANTONIO Piperacillin/Tazobactam/Dextrose (Zosyn 4.5 Gm Premix) 4.5 gm in 100 mls @ 200 mls/hr IV.SIG Q6H MARCO ANTONIO Insulin Aspart (Novolog Insulin Correctional Sugar Inj) 0 unit SQ ACHS MARCO ANTONIO; Protocol Lactulose (Lactulose Liq) 30 ml PO DAILY PRN PRN Reason: SEVERE CONSITIPATION Morphine Sulfate (Morphine Inj) 2 mg IV.PUSH Q4H PRN PRN Reason: PAIN 6-10 Ondansetron HCl (Zofran Inj) 4 mg IV.PUSH Q6H PRN PRN Reason: NAUSEA OR VOMITING Senna/Docusate Sodium (Kiki-Colace) 1 tab PO BID MARCO ANTONIO Sennosides (Senokot) 17.2 mg PO Q12H PRN PRN Reason: Moderate Constipation Allergies Allergy/AdvReac Type Severity Reaction Status Date / Time No Known Allergies Allergy Verified 02/05/18 22:43 Home Medications Medication Instructions Recorded Confirmed Type insulin regular human 1 sliding scale dose SUB-Q UD 02/05/18 02/05/18 History Exam Vital signs: Vital Signs 02/05/18 22:43 02/05/18 23:22 02/06/18 00:12 Temperature 98.6 F Pulse Rate 159 H 129 H 112 H Respiratory Rate 18 20 17 Blood Pressure 120/77 130/84 118/75 Pulse Oximetry 95 98 96 02/06/18 02:54 02/06/18 04:17 Temperature Pulse Rate 99 H Respiratory Rate 15 14 Blood Pressure 127/58 L Pulse Oximetry 95 Intake & Output 02/05/18 02/05/18 02/06/18 06:59 18:59 06:59 Intake Total 3500 / 3500 Balance 3500 / 3500 Weight 72.575 kg Intake: IV 3500 / 3500 NS Inj 1,000 ML @ Wide Open IV. 3000 / 3000 SIG BOLUS MARCO ANTONIO Rx#:[id number] NS Inj 500 ML @ Wide Open IV. 500 / 500 SIG BOLUS MARCO ANTONIO Rx#:[id number] Narrative: PE: GENERAL: Very pleasant young male in no acute distress. SKIN: Focused skin assessment warm and dry. HEENT: PERRLA, EOMI. No scleral icterus or conjunctival pallor. No lid lag or facial droop. CARDIOVASCULAR: Regular rate and rhythm. No obvious murmurs to auscultation. No chest tenderness to palpation. RESPIRATORY: No obvious rhonchi or wheezing. Clear to auscultation. Breath sounds equal bilaterally. GASTROINTESTINAL: Abdomen soft, very mild tenderness to palpation, nondistended. BS normal. MUSCULOSKELETAL: Extremities without clubbing, cyanosis, or edema. No obvious deformities. NEUROLOGICAL: Awake, alert and oriented x4. No focal neurologic deficits. Moving both upper and lower extremities spontaneously. PSYCHIATRIC: Appropriate mood and affect. Insight and judgment normal. Results - Labs CBC & Chem 7: 02/05/18 23:20 02/05/18 23:20 Labs: Short CBC 02/05/18 Range/Units 23:20 WBC 17.3 H (4.0-11.0) th/mm3 Hgb 19.3 H (13.0-17.0) gm/dL Hct 53.7 H (39.0-51.0) % Plt Count 357 (150-450) th/mm3 BMP 02/05/18 23:20 Sodium 137 Potassium 4.1 Chloride 98 Carbon Dioxide 27.5 BUN 26 H Creatinine 1.42 H Calcium 10.4 H Liver Function 02/05/18 Range/Units 23:20 Total Bilirubin 0.6 (0.2-1.0) mg/dL Direct Bilirubin 0.1 (0.0-0.2) mg/dL AST 35 (15-37) U/L ALT 36 (12-78) U/L Alkaline Phosphatase 142 H (45-117) U/L Albumin 4.1 (3.4-5.0) g/dL - Imaging Impressions Abdomen/Pelvis CT 02/06/18 00:00 CONCLUSION: 1. Probable transient ileoileal intussusception in the left midabdomen. Transient intussusceptions are frequently detected on CT exam and generally benign. It is however reported in adults with celiac and Crohn's disease although there is no evidence for significant inflammatory bowel disease on this exam. 2. Portions of the midabdomen are obscured by motion artifact. 3. Appendix is not directly visualized although there is no significant inflammatory change in the right lower quadrant. Chest X-Ray 02/06/18 00:37 CONCLUSION: 1. No acute cardiopulmonary disease. Caprini VTE Risk Assessment Caprini VTE Risk Assessment: No/Low Risk (score <= 1) Caprini Risk Assessment Model: Point Value = 1 Point Value = 2 Point Value = 3 Point Value = 5 Age 41-60 Minor surgery BMI > 25 kg/m2 Swollen legs Varicose veins or History of unexplained or recurrent spontaneous Oral contraceptives or hormone replacement Sepsis (< 1 month) Serious lung disease, including pneumonia (< 1 month) Abnormal pulmonary function Acute myocardial infarction Congestive heart failure (< 1 month) History of inflammatory bowel disease Medical patient at bed rest Age 61-74 Arthroscopic surgery Major open surgery (> 45 min) Laparoscopic surgery (> 45 min) Malignancy Confined to bed (> 72 hours) Immobilizing plaster cast Central venous access Age >= 75 History of VTE Family history of VTE Factor V Leiden Prothrombin [id number] Lupus anticoagulant Anticardiolipin antibodies Elevated serum homocysteine Heparin-induced thrombocytopenia Other congenital or acquired thrombophilia Stroke (< 1 month) Elective arthroplasty Hip, pelvis, or leg fracture Acute spinal cord injury (< 1 month) Prophylaxis Regimen: Total Risk Factor Score Risk Level Prophylaxis Regimen 0-1 Low Early ambulation 2 Moderate Order ONE of the following: *Sequential Compression Device (SCD) *Heparin 5000 units SQ BID 3-4 Higher Order ONE of the following medications: *Heparin 5000 units SQ TID *Enoxaparin/Lovenox 40 mg SQ daily (WT < 150 kg, CrCl > 30 mL/min) *Enoxaparin/Lovenox 30 mg SQ daily (WT < 150 kg, CrCl > 10-29 mL/min) *Enoxaparin/Lovenox 30 mg SQ BID (WT < 150 kg, CrCl > 30 mL/min) AND/OR *Sequential Compression Device (SCD) 5 or more Highest Order ONE of the following medications: *Heparin 5000 units SQ TID (Preferred with Epidurals) *Enoxaparin/Lovenox 40 mg SQ daily (WT < 150 kg, CrCl > 30 mL/min) *Enoxaparin/Lovenox 30 mg SQ daily (WT < 150 kg, CrCl > 10-29 mL/min) *Enoxaparin/Lovenox 30 mg SQ BID (WT < 150 kg, CrCl > 30 mL/min) AND *Sequential Compression Device (SCD) Assessment and Plan - Assessment (1) DM (diabetes mellitus) Code(s): E11.9 - Type 2 diabetes mellitus without complications Status: Acute (2) ZAIN (acute kidney injury) Code(s): N17.9 - Acute kidney failure, unspecified Status: Acute (3) Leukocytosis Code(s): D72.829 - Elevated white blood cell count, unspecified Status: Acute (4) Intussusception Code(s): K56.1 - Intussusception Status: Acute - Plan A/P: 1. Intussusception: c/o abdominal pain, nausea/vomiting, now resolved, CT Abd/ Pelvis w/ ileoileal transient intussusception, images reviewed, no significant inflammation, clinically improved w/ no pain at this time, abdomen soft. NPO, Consult Gen Sx for further eval, analgesics/antiemetic as needed. 2. DM: Sliding scale w/ Accu-Cheks 3. ZAIN: Creatinine 1.42, previously 0.89 on 03/12/17, check U/a, IVF for hydration, monitor I/O. 4. Leukocytosis: WBC 17.3, afebrile, however in light of intussusception will start on empiric treatment w/ Zosyn IV for possible intra-abdominal infection, repeat labs in am. 5. DVT Prophylaxis: SCD/Teds 6. Social work for d/c planning as needed 7. Case discussed w/ ER physician at length, labs/records/imaging reviewed by me.
[2018-02-06] MEDS: Piperacil/Tazo 4.5 GM Premix 4.5 GM/100 ML BAG IV.SIG SCH ×3 (06:43→17:41)
[2018-02-06 07:30] LABS: Bacteria,Urine Occasional /hpf; Bilirubin,Urine Negative (Negative); Clarity,Urine Clear (Clear); Color,Urine Yellow (Yellw/Straw); Glucose,Urine (UA) 500 or Greater mg/dL (Negative); Hyaline Casts,Urine 1 /lpf (0-3); Leukocyte Esterase,Urine Negative (Negative); Mucus,Urine Few /lpf (Occasional); Nitrite,Urine Negative (Negative); Specific Gravity,Urine 1.048 (1.002-1.035)
[2018-02-06] MEDS: Insulin NovoLOG Aspart Correctional Sugar Inj SQ SCH ×4 (08:46→21:02)
[2018-02-06] MEDS: Senna/Docusate Sodium 8.6/50 MG Tablet PO SCH ×2 (08:47→20:53)
[2018-02-06 09:37] LABS: Free T4 (Free Thyroxine) 1.01 ng/dL (0.76-1.46); Thyroid Stimulating Hormone 2.3 uIU/mL (0.358-3.740)
--- NOTE | 2018-02-06 12:27 | XR ---
EXAM DATE: 02/06/2018 12:22 PM EDT AGE/SEX: 22 years / Male INDICATIONS: Possible obstruction. CLINICAL DATA: This is the patient's initial encounter. Patient reports that signs and symptoms have been present for 2 days and indicates a pain score of 0/10. MEDICAL/SURGICAL HISTORY: . Hypothyroidism. Diabetes. None. COMPARISON: [facility] [place] ABDOM[place] & PELVIS W CONTRAST, 02/06/2018. . FINDINGS: Supine and upright views of the abdomen were performed. The abdominal bowel gas pattern is normal. No air-fluid levels are seen. No abnormal masses, calcifications, or organomegaly is seen. The visualiz ed lower lungs are clear. No evidence of free intraperitoneal gas. The osseous structures are unremar kable. CONCLUSION: Negative examination. Electronically signed by: Alhaji Abdi MD 02/06/2018 12:25 PM EDT
[2018-02-06 13:16] LABS: Baso # (Auto) 0.1 th/mm3 (0.0-0.2); Baso % (Auto) 0.8 % (0.0-2.0); Eos % (Auto) 0.1 % (0.0-4.0); Hematocrit 45.1 % (39.0-51.0); Hemoglobin 15.5 gm/dL (13.0-17.0); Lymph # (Auto) 1.5 th/mm3 (1.0-4.8); Lymph % (Auto) 13.8 % (9.0-44.0); Mean Corpuscular HGB Conc 34.4 % (32.0-36.0); Mean Corpuscular Volume 93.1 fL (80.0-100.0); Mean Platelet Volume 7.2 fL (7.0-11.0); Mono # (Auto) 0.7 th/mm3 (0.0-0.9); Mono % (Auto) 6.7 % (0.0-8.0); Neut # (Auto) 8.7 th/mm3 (1.8-7.7); Neut % (Auto) 78.6 % (16.0-70.0); Platelet Count 250 th/mm3 (150-450); Red Blood Count 4.84 mil/mm3 (4.50-5.90); Red Cell Distribution Width 13.5 % (11.6-17.2); White Blood Count 11.1 th/mm3 (4.0-11.0)
[2018-02-06] MEDS ORDERED: Pantoprazole Sodium 20 MG DR Tablet PO SCH (13:30)
[2018-02-06 13:40] LABS: Anion Gap 15 meq/L (5-15); Blood Urea Nitrogen 21 mg/dL (7-18); Calcium 8.6 mg/dL (8.5-10.1); Carbon Dioxide 22.6 meq/L (21.0-32.0); Chloride 99 meq/L (98-107); Glomerular Filtration Rate Greater Than 89 mL/min (>89); Glucose,Random 272 mg/dL (74-106); Potassium 3.8 meq/L (3.5-5.1); Sodium 137 meq/L (136-145)
--- NOTE | 2018-02-06 14:03 | ECG ---
Date Performed: 02/05/2018 Time Performed: 22:53:00 PTAGE: 22 years EKG: SINUS TACHYCARDIA WITH SHORT PA INTERVAL LEFT VENTRICULAR HYPERTROPHY AND ST-T CHANGE ABNOR MAL ECG PREVIOUS TRACING : 03/10/2017 16.38 DOCTOR: Suyapa Carroll Interpretating Date/Time 02/06/2018 14:00:56
--- NOTE | 2018-02-06 16:57 | P.CON ---
History of Present Illness Consult date: 02/06/18 Requesting Physician: Young Yepez Reason for Consult: Intussusception Primary Care Provider: No Primary Care Physician History of Present Illness: Patient is a 22-year-old male who presented with a history of abdominal pain nausea and vomiting starting earlier on the evening of 915. Patient reports that he had no previous history like this. Reports that the pain is mostly on the left side. He was noted to have elevated blood sugars and elevated WBC. CT the abdomen and pelvis demonstrated a transient ileoileal intussusception in the left midabdomen. 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 He reports no previous history of surgeries or similar symptoms Review of Systems All other systems reviewed negative except as stated in HPI [facility] - History History Provided By: Patient - Medical History Medical History: Medical History (Last Reviewed 02/06/18 @ 16:54 by Constantine Saez MD) Diabetes Hypothyroid - Tobacco History Second Hand Smoke Exposure: No Tobacco Use In Past 30 Days: Yes Smoking Status: Current every day smoker Tobacco Type: Cigarettes - Alcohol History How Often Do You Have a Drink Containing Alcohol: Never - Substance Use History Substance History: No History of Abuse - Travel History Recent Travel in the [place] Within the Last 8 Weeks: No Recent Travel Out of the Country Within the Last 8 Weeks: No - Immunization History Tetanus Immunization: <5 Years Hx Influenza Vaccine This Season: Yes Medications and Allergies Active Medications: Active Medications Acetaminophen (Tylenol) 650 mg PO Q4H PRN PRN Reason: Temp > 100.4 Al Hydroxide/Mg Hydroxide (Milk Of Magnesia Liq) 30 ml PO Q12H PRN PRN Reason: Mild Constipation Bisacodyl (Dulcolax Supp) 10 mg RECTAL DAILY PRN PRN Reason: SEVERE CONSITIPATION Dextrose (D50w Vial) 50 ml IV.PUSH UNSCH PRN PRN Reason: PER HYPOGLYCEMIA PROTOCOL Glucagon (Glucagon Inj) 1 mg OTHER PRN PRN PRN Reason: for Hypoglycemia Protocol Sodium Chloride (Ns Inj) 1,000 mls @ 0 mls/hr IV.SIG BOLUS MARCO ANTONIO Stop: 02/06/18 23:16 Last Infusion: 02/06/18 01:49 Dose: Infused Sodium Chloride (Ns Inj) 500 mls @ 0 mls/hr IV.SIG BOLUS MARCO ANTONIO Last Infusion: 02/06/18 01:50 Dose: Infused Sodium Chloride (Ns Inj) 1,000 mls @ 100 mls/hr IV.CONT .Q10H [facility] Last Admin: 02/06/18 14:06 Dose: Not Given Piperacillin/Tazobactam/Dextrose (Zosyn 4.5 Gm Premix) 4.5 gm in 100 mls @ 200 mls/hr IV.SIG Q6H [facility] Last Infusion: 02/06/18 12:57 Dose: Infused Insulin Aspart (Novolog Insulin Correctional Sugar Inj) 0 unit SQ ACHS [facility]; Protocol Last Admin: 02/06/18 13:00 Dose: 5 unit Lactulose (Lactulose Liq) 30 ml PO DAILY PRN PRN Reason: SEVERE CONSITIPATION Morphine Sulfate (Morphine Inj) 2 mg IV.PUSH Q4H PRN PRN Reason: PAIN 6-10 Ondansetron HCl (Zofran Inj) 4 mg IV.PUSH Q6H PRN PRN Reason: NAUSEA OR VOMITING Pantoprazole Sodium (Protonix) 20 mg PO DAILY [facility] Last Admin: 02/06/18 14:05 Dose: 20 mg Senna/Docusate Sodium (Kiki-Colace) 1 tab PO BID [facility] Last Admin: 02/06/18 08:47 Dose: 1 tab Sennosides (Senokot) 17.2 mg PO Q12H PRN PRN Reason: Moderate Constipation Allergies Allergy/AdvReac Type Severity Reaction Status Date / Time No Known Allergies Allergy Verified 02/05/18 22:43 Home Medications Medication Instructions Recorded Confirmed Type insulin regular human 1 sliding scale dose SUB-Q UD 02/05/18 02/05/18 History Physical Exam Vital signs: Vital Signs 02/05/18 22:43 02/05/18 23:22 02/06/18 00:12 Temperature 98.6 F Pulse Rate 159 H 129 H 112 H Respiratory Rate 18 20 17 Blood Pressure 120/77 130/84 118/75 Pulse Oximetry 95 98 96 02/06/18 02:54 02/06/18 04:17 02/06/18 08:00 Temperature 97.9 F Pulse Rate 99 H 112 H Respiratory Rate 15 14 16 Blood Pressure 127/58 L 125/72 Pulse Oximetry 95 99 02/06/18 11:34 02/06/18 16:00 Temperature 97.9 F 98.1 F Pulse Rate 104 H 104 H Respiratory Rate 16 16 Blood Pressure 128/81 122/68 Pulse Oximetry 98 98 Intake & Output 02/05/18 02/06/18 02/06/18 18:59 06:59 18:59 Intake Total 3500 / 3500 200 / 200 Output Total 1240 / 1240 Balance 3500 / 3500 -1040 / -1040 Weight 72.575 kg Intake: IV 3500 / 3500 200 / 200 Zosyn 4.5 GM Premix 4.5 gm In 200 / 200 100 ml @ 200 mls/hr IV.SIG Q6H MARCO ANTONIO Rx#:[id number] NS Inj 1,000 ML @ Wide Open IV. 3000 / 3000 SIG BOLUS MARCO ANTONIO Rx#:[id number] NS Inj 500 ML @ Wide Open IV. 500 / 500 SIG BOLUS MARCO ANTONIO Rx#:[id number] Output: Urine 1240 / 1240 Other: # Voids 1 Weight On Admission 72.575 kg - Constitutional no acute distress - Routine HEENT Exam Head: Present: normocephalic, atraumatic - Routine Respiratory Exam Present: CTA bilaterally - Routine Cardiovascular Exam Present: RRR - Routine Abdominal Exam Present: soft, tenderness (Mild in left mid and lower abdomen.) Assessment and Plan - Assessment (1) Intussusception Code(s): K56.1 - Intussusception Status: Acute Plan: Simple observation. I am very comfortable with the patient starting on clear liquids. If he has had increased abdominal pain, consideration would be given to laparoscopy. He is very comfortable with this. Repeat CBC demonstrates WBC is decreased but still slightly over normal. If he does well with clear liquids tonight, will advance diet in the morning. (2) Leukocytosis Code(s): D72.829 - Elevated white blood cell count, unspecified Status: Acute - Attending Attestation I attest that I had a [id number] encounter with the patient on the same day, and personally performed and documented my assessment and findings in the medical record. The following services were provided during this hospital visit: Chart data review, vital sign assessments/reviewing monitor data Review of consultation notes if present Medication orders/review and/or management Ordering and/or reviewing lab tests Ordering and/or interpreting/reviewing x-rays and/or diagnostic studies Care of the patient and discussion of the patient with the care team Documentation time To help prompt me to consider important information that might be impacting today's encounter and assessment, Information from prior notes written by myself or my colleagues may have been "brought forward/copy and pasted" into today's note.
[2018-02-06 21:22] VITALS: BP 136/78; PULSE 97; RESP 22; TEMP 99.4; O2SAT 99
--- NOTE | 2018-02-07 00:02 | P.AMA ---
AMA Note - AMA Note AMA Statement: Patient Alan Arredondo has decided to leave the hospital against medical advice. This patient has the capacity to refuse care and understands the risks of leaving, including permanent disability and/or , and has had an opportunity to ask questions about his/her condition. The patient has been informed that he/she may return for care at any time, and follow up has been arranged/advised. - AMA Note Discharge Disposition: 07 Against Medical Advice Patient Condition on Discharge: Stable
== END 2018-02-06 23:37 | disposition left against medical advice (07) ==
LOC: NEDA 22:06 → NEPC 22:06 → NEPFCDU 02-06 04:43
PROVIDERS: ADMIT Hospitalist; ATTEND Hospitalist